=== PATIENT | female | born 1950 | race Caucasian/White ===

== ENCOUNTER 2022-09-19 19:16 | Emergency (ER) | payer OTHER, MEDICARE ==
[~2022-09-19] VITALS: Ht 157.5 cm; Wt 64.9 kg
[2022-09-19] MEDS ORDERED: TRAZODONE HCL50 MG PO (19:30)
[2022-09-19] MEDS ORDERED: DONEPEZIL HCL10 MG PO (19:31)
[2022-09-19] MEDS ORDERED: MEMANTINE HCL5 MG PO (19:31)
[2022-09-19 20:55] VITALS: BP 109/62
== END 2022-09-19 20:55 | disposition home or self-care (01) ==
LOC: EDBD 19:16 → ED 19:16
DX: S51.812A Laceration without foreign body of left forearm, initial encounter (principal); S40.812A Abrasion of left upper arm, initial encounter; S40.811A Abrasion of right upper arm, initial encounter; S10.91XA Abrasion of unspecified part of neck, initial encounter; X58.XXXA Exposure to other specified factors, initial encounter; Z88.8 Allergy status to other drugs, medicaments and biological substances; Z88.5 Allergy status to narcotic agent; Z79.899 Other long term (current) drug therapy
CPT/HCPCS: 99283